=== PATIENT | male | born 1970 | race Caucasian/White ===

== ENCOUNTER 2025-09-06 16:00 | Outpatient (OUT) | payer OTHER, SELFPAY ==
[2025-09-06 16:30] LABS: Hematocrit 39.4 % (42.0-54.0); Hemoglobin 12.8 g/dL (14.0-18.0); Immature Granulocytes Abs Auto 0.02 10^3/uL (0.00-0.03); Immature Granulocytes Pct Auto 0.4 % (0.0-0.5); Lymphocytes Absolute Auto 2.4 10^3/uL (1.2-3.8); Mean Corpuscular HGB Conc 32.5 g/dL (29.9-35.2); Mean Corpuscular Hemoglobin 29.4 pg (25.9-34.0); Mean Corpuscular Volume 90.6 fL (80.0-94.0); Platelet Count 142 10^3/uL (150-450); Red Blood Count 4.35 10^6/uL (4.70-6.10); White Blood Count 5.6 10^3/uL (4.0-11.0)
[2025-09-06 17:08] LABS: Alanine Aminotransferase 12 U/L (16-63); Albumin Globulin Ratio 0.9; Albumin Level 3.2 g/dL (3.4-5.0); Alkaline Phosphatase 63 U/L (46-116); Anion Gap 6.8; Aspartate Amino Transferase 12 U/L (15-37); Blood Urea Nitrogen 20.0 mg/dL (7.0-18.0); Calcium 9.3 mg/dL (8.5-10.1); Carbon Dioxide 32.0 mmol/L (21.0-32.0); Chloride 103 mmol/L (98-107); Estimated GFR (African America >60 (>=60 mL/min/1.73m^2); Estimated GFR (Non-African Ame >60 (>=60 mL/min/1.73m^2); Globulin 3.4 g/dL; Glucose 108 mg/dL (74-106); Magnesium 2.0 mg/dL (1.8-2.4); NT Pro B Type Natriuretic Pept 179.0 pg/mL (<=900.0); Potassium 3.8 mmol/L (3.5-5.1); Sodium 138 mmol/L (136-145); Thyroid Stimulating Hormone 1.325 uIU/mL (0.358-3.740); Total Protein 6.6 g/dL (6.4-8.2)
== END 2025-09-06 16:01 | disposition home or self-care (01) ==
LOC: LAB 16:03
PROVIDERS: Visit Provider Nurse Practitioner Primary Care
DX: F11.20 Opioid dependence, uncomplicated (principal); R00.1 Bradycardia, unspecified; F15.20 Other stimulant dependence, uncomplicated
CPT/HCPCS: 36415; 80053; 82553; 83735; 83880; 84443; 84484; 85025; 86317; 87340; 87389; 87522